=== PATIENT | female | born 1980 | race Caucasian/White ===

== ENCOUNTER 2018-12-14 17:28 | Inpatient (IN) | payer OTHER ==
[2018-12-14 18:09] VITALS: BMI 25.2
--- NOTE | 2018-12-14 18:37 | HP ---
CIWA Score Nausea/Vomitin-No Nausea/No Vomiting Muscle Tremors: None Anxiety: 4-Mod. Anxious/Guarded Agitation: 4-Moderately Restless Paroxysmal Sweats: No Perspiration Orientation: 0-Oriented Tacttile Disturbances: 0-None Auditory Disturbances: 0-None Visual Disturbances: 0-None Headache: 0-None Present CIWA-Ar Total Score: 8 - Admission Criteria OASAS Guidelines: Admission for Medically Managed Detox: Requires at least one of the followin. CIWA greater than 12 2. Seizures within the past 24 hours 3. Delirium tremens within the past 24 hours 4. Hallucinations within the past 24 hours 5. Acute intervention needed for co occurring medical disorder 6. Acute intervention needed for co occurring psychiatric disorder 7. Severe withdrawal that cannot be handled at a lower level of care (continued vomiting, continued diarrhea, abnormal vital signs) requiring intravenous medication and/or fluids 8. Admission ROS S - HPI Allergies/Adverse Reactions: Allergies Allergy/AdvReac Type Severity Reaction Status Date / Time No Known Allergies Allergy Verified 12/14/18 17:46 History of Present Illness: pt here requesting detox from etoh use , reports first age of use 16 , daily since 6 years ago , beer 12-pk x 1 , reports sweating the next day , + blackouts , denies seizures , denies tremors , starts drinking in the evenings , latest use 5 am today , current symptoms as above . Reports past drinking and driving . PMHX : gerd, asthma, anxiety , bacterial vaginosis x 20 , current symptoms of pruritus and d/c similar to prior episodes requesting meds PSHX : denies PSYch : denies current si / hi tobacco : 1 ppd , not interested in smoking cessation at this time lmp " i don't remember , recently " , upt neg , SHx : reports has 9-mo old child , in custody w/ bio father , 3 other children ages 18,17 w/ maternal GPs , 6 y.o. 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 This report was requested by: Allison Faith | Reference #: [id number] Others' Prescriptions Patient Name: Blanka Hurley Date: 1980 Address: [address] [place] [address] Sex: Female Rx Written Rx Dispensed Drug Quantity Days Supply Prescriber Name 12/12/2018 12/13/2018 clonazepam 0.5 mg tablet 60 15 Evelia Costello, Leslie 11/28/2018 11/28/2018 clonazepam 0.5 mg tablet 60 15 Evelia Costello, Leslie 10/16/2018 11/08/2018 clonazepam 0.5 mg tablet 60 15 Evelia Costello, Leslie 10/16/2018 10/23/2018 clonazepam 0.5 mg tablet 60 15 Evelia Costello, Leslie 09/21/2018 10/09/2018 clonazepam 0.5 mg tablet 60 15 ChiaraNati [employer] OPERATIONS MANAGER 09/21/2018 09/22/2018 clonazepam 0.5 mg tablet 60 15 ChiaraNati SEC[employer] OPERATIONS MANAGER 08/10/2018 08/30/2018 clonazepam 0.5 mg tablet 60 15 ChiaraNati SECUR[employer] OPERATIONS MANAGER 08/10/2018 08/17/2018 clonazepam 0.5 mg tablet 60 15 Chiara, Nati Chua SECURITY OPERATIONS MANAGER 08/08/2018 08/09/2018 clonazepam 0.5 mg tablet 28 7 Eleuterio Delong MD 07/20/2018 07/21/2018 clonazepam 0.5 mg tablet 60 15 Evelia Costello, Leslie 06/28/2018 06/29/2018 clonazepam 0.5 mg tablet 60 15 Evelia Costello, Leslie 06/21/2018 06/24/2018 clonazepam 0.5 mg tablet 16 4 ChiaraNati SECURITY OPERATIONS MANAGER 05/18/2018 06/02/2018 clonazepam 0.5 mg tablet 60 15 Chiara, Nati Chua SECURITY OPERATIONS MANAGER 05/18/2018 05/18/2018 clonazepam 0.5 mg tablet 60 15 ChiaraNati SECURITY OPERATIONS MANAGER 04/25/2018 05/02/2018 clonazepam 0.5 mg tablet 60 15 Chiara, Nati Chua SECURITY OPERATIONS MANAGER 03/28/2018 04/12/2018 clonazepam 0.5 mg tablet 60 15 Chiara, Nati Chua SECURITY OPERATIONS MANAGER 03/28/2018 03/28/2018 clonazepam 0.5 mg tablet 60 15 ChiaraNati SECURITY OPERATIONS MANAGER 03/21/2018 03/21/2018 clonazepam 0.5 mg tablet 21 7 Shirleyvictor hugoEleuterio cowan MD 03/14/2018 03/14/2018 clonazepam 0.5 mg tablet 21 7 AlexeiEleuterio cowan MD 03/07/2018 03/08/2018 clonazepam 0.5 mg tablet 21 7 AlexeiEleuterio cowan MD 02/20/2018 03/01/2018 clonazepam 0.5 mg tablet 14 7 Eleuterio Delong MD 02/20/2018 02/22/2018 clonazepam 0.5 mg tablet 14 7 Shirleyvictor hugoEleuterio cowan MD 02/15/2018 02/16/2018 clonazepam 0.5 mg tablet 14 7 AlexeiEleuterio cowan MD 01/19/2018 02/09/2018 clonazepam 0.5 mg tablet 14 7 Shirleyvictor hugoEleuterio cowan MD 01/19/2018 02/02/2018 clonazepam 0.5 mg tablet 14 7 Shirleyvictor hugoEleuterio cowan MD 01/19/2018 01/26/2018 clonazepam 0.5 mg tablet 14 7 Shirleyvictor hugoEleuterio cowan MD 01/19/2018 01/20/2018 clonazepam 0.5 mg tablet 14 7 Eleuterio Delong MD 12/29/2017 01/04/2018 clonazepam 0.5 mg tablet 30 7 Nati Guadarrama SECURITY OPERATIONS MANAGER Exam Limitations: No Limitations - Ebola screening Have you traveled outside of the country in the last 21 days: No (N) Have you had contact with anyone from an Ebola affected area: No Do you have a fever: No - Review of Systems Constitutional: No Symptoms Reported EENT: reports: No Symptoms Reported Respiratory: reports: See HPI Cardiac: reports: No Symptoms Reported GI: reports: Diarrhea, Abdominal cramping : reports: No Symptoms Reported Integumentary: reports: No Symptoms Reported Neuro: reports: No Symptoms reported Endocrine: reports: No Symptoms Reported Psychiatric: reports: Orientated x3, Agitated, Anxious Patient History - Smoking Cessation Smoking history: Current every day smoker Have you smoked in the past 12 months: Yes Hx Chewing Tobacco Use: No Initiated information on smoking cessation: No - Substances abused Alcohol Substance route: Oral Frequency: Daily Amount used: 12 beers Age of first use: 16 Date of last use: 12/14/18 Family Disease History - Family Disease History Family Disease History: Other: Father (htn), Mother (A & W ), Brother (A & W ), Sister (A & W ), Son (4, A & W ) Admission Physical Exam [facility] - Vital Signs Vital Signs: Vital Signs - 24 hr 12/14/18 18:00 Temperature 97.6 F Pulse Rate 90 Respiratory 18 Rate Blood Pressure 129/81 - Physical General Appearance: Yes: Mild Distress, Anxious HEENTM: Yes: EOMI, Normocephalic, Normal Voice Respiratory: Yes: Lungs Clear, Normal Breath Sounds, No Respiratory Distress, No Accessory Muscle Use Neck: Yes: No masses,lesions,Nodules, Trachea in good position Cardiology: Yes: Regular Rhythm, Regular Rate, S1, S2, Tachycardia Abdominal: Yes: Non Tender, Soft Back: Yes: Normal Inspection Musculoskeletal: Yes: full range of Motion Extremities: Yes: Normal Range of Motion, Non-Tender Neurological: Yes: Fully Oriented, Alert, Motor Strength 5/5 Integumentary: Yes: Warm - Diagnostic (1) Alcohol abuse Current Visit: Yes Status: Acute (2) Nicotine dependence Current Visit: Yes Status: Chronic Qualifiers: Nicotine product type: cigarettes Breathalyzer - Breathalyzer Breathalyzer: 0 Urine Drug Screen - Test Device Lot number: [id number] Expiration date: 08/10/20 - Control Is test valid?: Yes - Results Drug screen NEGATIVE: Yes Inpatient Rehab Admission - Rehab Decision to Admit Inpatient rehab admission?: No
[2018-12-14] MEDS ORDERED: ALBUTEROL SO4 8 GM HFA INHALER IH PRN (18:46)
[2018-12-14] MEDS ORDERED: LANSOPRAZOLE 15 MG PO PRN (18:46)
[2018-12-14] MEDS ORDERED: ACETAMINOPHEN 325 MG TABLET (FP) PO PRN ×2 (18:50)
[2018-12-14] MEDS ORDERED: MAGNESIUM HYDROX 2400MG/30ML ORAL SUSPENSION 30 ML CUP PO PRN (18:50)
[2018-12-14] MEDS ORDERED: MAGNESIUM CITRATE 300 ML BOTTLE PO PRN (18:50)
[2018-12-14] MEDS ORDERED: BISMUTH SUBSALICYLATE 524 MG/30 ML UD PO PRN (18:50)
[2018-12-14] MEDS ORDERED: IBUPROFEN 400 MG TABLET (FP) PO PRN (18:50)
[2018-12-14] MEDS ORDERED: hydrOXYzine PAMOATE 25 MG CAPSULE (FP) PO PRN (18:50)
[2018-12-14] MEDS ORDERED: MAG HYDROX/AL HYDROX/SIMETH 30 ML UNIT-DOSE CUP PO PRN (18:50)
[2018-12-14] MEDS ORDERED: MENTHOL/PHENOL 1 EACH UD MM PRN (18:50)
[2018-12-14] MEDS ORDERED: chlordiazePOXIDE HCL 10 MG CAPSULE PO PRN (18:52)
[2018-12-14] MEDS: chlordiazePOXIDE HCL 25 MG CAPSULE PO SCH (22:29)
[2018-12-14] MEDS: MELATONIN 5 MG TABLETS PO PRN (22:29)
[2018-12-14] MEDS: THIAMINE HCL 100 MG TABLET (FP) PO SCH (22:29)
[2018-12-14] MEDS: metroNIDAZOLE 0.75% VAGINAL GEL 70 GM TUBE VG SCH (22:31)
[2018-12-15] MEDS: chlordiazePOXIDE HCL 25 MG CAPSULE PO SCH ×3 (05:53→22:02)
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
[2018-12-15 10:17] LABS: HEMATOCRIT 37.7 % (32.4-45.2); HEMOGLOBIN 12.5 GM/dL (10.7-15.3); MCH 30.3 pg (25.7-33.7); MCHC 33.2 g/dl (32.0-36.0); MEAN CELL VOLUME 91.1 fl (80-96); PLATELET COUNT 231 K/MM3 (134-434); RBC 4.14 M/mm3 (3.60-5.2); RDW 14.6 % (11.6-15.6)
[2018-12-15] MEDS: FLUoxetine HCL 20 MG CAPSULE (FP) PO SCH (10:18)
[2018-12-15] MEDS: NICOTINE 14 MG/24 HOURS TOPICAL PATCH TD SCH (10:18)
[2018-12-15] MEDS: PRENATAL VITAMINS W/ FOLIC ACID TABLET (FP) PO SCH ×2 (10:19→11:30)
[2018-12-15 10:48] LABS: BILIRUBIN,TOTAL 0.4 mg/dL (0.2-1); CALCIUM 8.4 mg/dL (8.5-10.1); CREATININE 0.7 mg/dL (0.55-1.3); POTASSIUM 3.9 mmol/L (3.5-5.1); TOT PROT 5.8 g/dl (6.4-8.2)
[2018-12-15 10:54] LABS: BLOOD UREA NITROGEN 2.2 mg/dL (7-18)
--- NOTE | 2018-12-15 11:07 | PN ---
S CIWA - CIWA Score Nausea/Vomitin-No Nausea/No Vomiting Muscle Tremors: 1-None Visible, but [place] Anxiety: 1-Mildly Anxious Agitation: 1-Slight > Activity Paroxysmal Sweats: 2 Orientation: 0-Oriented Tacttile Disturbances: 1-Very Mild Itch/Numbness Auditory Disturbances: 0-None Visual Disturbances: 0-None Headache: 0-None Present CIWA-Ar Total Score: 6 [facility] Progress Note (SOAP) Subjective: interrupted sleep, sweats Objective: 12/15/18 11:07 Vital Signs Temperature 97.2 F L 12/15/18 06:44 Pulse Rate 73 12/15/18 06:44 Respiratory Rate 18 12/15/18 06:44 Blood Pressure 108/64 12/15/18 06:44 O2 Sat by Pulse Oximetry (%) Laboratory Tests 12/14/18 12/15/18 12/15/18 18:27 07:50 07:50 WBC 5.0 RBC 4.14 Hgb 12.5 Hct 37.7 MCV 91.1 MCH 30.3 MCHC 33.2 RDW 14.6 Plt Count 231 MPV 8.0 Sodium 141 Potassium 3.9 Chloride 108 H Carbon Dioxide 27 Anion Gap 6 L BUN 2.2 L* Creatinine 0.7 Est GFR (CKD-EPI)AfAm 128.28 Est GFR (CKD-EPI)NonAf 110.69 Random Glucose 87 Calcium 8.4 L Total Bilirubin 0.4 AST 13 L ALT 18 Alkaline Phosphatase 84 Total Protein 5.8 L Albumin 3.0 L POC Urine HCG, Qual Negative pt aox3 in nad sitting up in bed . Assessment: 12/15/18 11:08 withdrawal sx's low bun 2.2- likely 2ndary to etoh Plan: cont. detox increase fluids change prevacid to bid
[2018-12-15] MEDS: LANSOPRAZOLE 15 MG PO SCH (22:02)
[2018-12-15] MEDS: metroNIDAZOLE 0.75% VAGINAL GEL 70 GM TUBE VG SCH (22:02)
[2018-12-15] MEDS: MELATONIN 5 MG TABLETS PO PRN (22:03)
[2018-12-15] MEDS: THIAMINE HCL 100 MG TABLET (FP) PO SCH (22:03)
[2018-12-16] MEDS ORDERED: chlordiazePOXIDE 5 MG CAPSULE PO SCH (05:00)
[2018-12-16 09:43] VITALS: BP 123/74; PULSE 72; TEMP 98.1
[2018-12-16] MEDS: PRENATAL VITAMINS W/ FOLIC ACID TABLET (FP) PO SCH (10:28)
[2018-12-16] MEDS: FLUoxetine HCL 20 MG CAPSULE (FP) PO SCH (10:28)
[2018-12-16] MEDS: LANSOPRAZOLE 15 MG PO SCH (10:28)
[2018-12-16] MEDS: NICOTINE 14 MG/24 HOURS TOPICAL PATCH TD SCH (10:28)
--- NOTE | 2018-12-16 14:11 | DS ---
[facility] Detox Discharge Summary Admission Date: 12/14/18 Discharge Date: 12/16/18 (Left AMA) - History Present History: Alcohol Dependence Additional Comments: Pt left AMA. She did not complete her detox protocol. Pt stated she has to leave to take care of something. Attempt to let her stay and complete her detox protocol failed. Pt is AOX3 and in no respiratory distress. During morning rounds pt c/o mild withdrawal symptoms. Pertinent Past History: history of alcohol use disorder and asthma. - Physical Exam Results Vital Signs: Vital Signs Temperature 98.1 F 12/16/18 09:42 Pulse Rate 72 12/16/18 09:42 Respiratory Rate 18 12/16/18 09:42 Blood Pressure 123/74 12/16/18 09:42 O2 Sat by Pulse Oximetry (%) Vital Signs 12/16/18 12/16/18 08:04 09:42 Temperature 97.3 F L 98.1 F Pulse Rate 60 72 Respiratory 16 18 Rate Blood Pressure 123/72 123/74 Laboratory Last Values WBC 5.0 K/mm3 (4.0-10.0) 12/15/18 07:50 RBC 4.14 M/mm3 (3.60-5.2) 12/15/18 07:50 Hgb 12.5 GM/dL (10.7-15.3) 12/15/18 07:50 Hct 37.7 % (32.4-45.2) 12/15/18 07:50 MCV 91.1 fl (80-96) 12/15/18 07:50 MCH 30.3 pg (25.7-33.7) 12/15/18 07:50 MCHC 33.2 g/dl (32.0-36.0) 12/15/18 07:50 RDW 14.6 % (11.6-15.6) 12/15/18 07:50 Plt Count 231 K/MM3 (134-434) 12/15/18 07:50 MPV 8.0 fl (7.5-11.1) 12/15/18 07:50 Sodium 141 mmol/L (136-145) 12/15/18 07:50 Potassium 3.9 mmol/L (3.5-5.1) 12/15/18 07:50 Chloride 108 mmol/L (98-107) H 12/15/18 07:50 Carbon Dioxide 27 mmol/L (21-32) 12/15/18 07:50 Anion Gap 6 MMOL/L (8-16) L 12/15/18 07:50 BUN 2.2 mg/dL (7-18) L* 12/15/18 07:50 Creatinine 0.7 mg/dL (0.55-1.3) 12/15/18 07:50 Est GFR (CKD-EPI)AfAm 128.28 12/15/18 07:50 Est GFR (CKD-EPI)NonAf 110.69 12/15/18 07:50 Random Glucose 87 mg/dL (74-106) 12/15/18 07:50 Calcium 8.4 mg/dL (8.5-10.1) L 12/15/18 07:50 Total Bilirubin 0.4 mg/dL (0.2-1) 12/15/18 07:50 AST 13 U/L (15-37) L 12/15/18 07:50 ALT 18 U/L (13-61) 12/15/18 07:50 Alkaline Phosphatase 84 U/L (45-117) 12/15/18 07:50 Total Protein 5.8 g/dl (6.4-8.2) L 12/15/18 07:50 Albumin 3.0 g/dl (3.4-5.0) L 12/15/18 07:50 POC Urine HCG, Qual Negative 12/14/18 18:27 RPR Titer Nonreactive (NONREACTIVE) 12/15/18 07:50 Labs noted. Pertinent Admission Physical Exam Findings: withdrawal symptoms. - Treatment Hospital Course: Detox Protocol Followed - Medication Discharge Medications: Ambulatory Orders Albuterol Sulfate Inhaler - [Ventolin HFA Inhaler -] 2 inhaler PO Q4HWA PRN 09/29 Fluoxetine HCl [Prozac] 60 mg PO DAILY 12/14/18 Lansoprazole 60 mg PO DAILY 12/14/18 clonazePAM 0.5 mg PO QID 12/14/18 - Diagnosis (1) Alcohol abuse Status: Acute (2) Alcohol dependence with withdrawal, uncomplicated Status: Acute (3) Bronchial asthma Status: Chronic (4) GERD (gastroesophageal reflux disease) Status: Chronic (5) Nicotine dependence Status: Chronic Qualifiers: Nicotine product type: cigarettes - AMA Did Patient Leave Against Medical Advice: Yes
[2018-12-17] MEDS ORDERED: chlordiazePOXIDE HCL 10 MG CAPSULE PO PRN
[2018-12-17] MEDS ORDERED: chlordiazePOXIDE HCL 10 MG CAPSULE PO SCH (05:00)
[2018-12-18] MEDS ORDERED: chlordiazePOXIDE HCL 10 MG CAPSULE PO ONE (05:00)
== END 2018-12-16 13:25 | disposition home or self-care (01) | DRG 775 ==
LOC: YASAS 17:28 → Y6N 19:01
PROVIDERS: ADMIT Surgery; ATTEND Surgery
PROC: HZ2ZZZZ Detoxification Services for Substance Abuse Treatment (ICD-10-PCS; principal; 2018-12-14)
DX: F10.230 Alcohol dependence with withdrawal, uncomplicated (principal); F17.210 Nicotine dependence, cigarettes, uncomplicated; F10.24 Alcohol dependence with alcohol-induced mood disorder; F10.282 Alcohol dependence with alcohol-induced sleep disorder; F41.0 Panic disorder [episodic paroxysmal anxiety]; J45.909 Unspecified asthma, uncomplicated; K21.9 Gastro-esophageal reflux disease without esophagitis
CPT/HCPCS: 36415; 80053; 81025; 85027; 86480; 86593